=== PATIENT | female | born 1970 | race African-American/Black ===

== ENCOUNTER → 2017-03-24 | Outpatient (CLI) | payer OTHER ==
[~2017-03-24] MED LIST: BACL10TA PO; HYDR12.57 PO; OXYC-360 PO; TRIA1CAP6 PO
== END ==
LOC: CPRE 11:56
PROVIDERS: ATTEND Obstetrics & Gynecology Gynecologic Oncology
DX: Z01.812 Encounter for preprocedural laboratory examination (principal); N87.1 Moderate cervical dysplasia

== ENCOUNTER → 2017-04-05 | Day surgery (SDC) | payer OTHER ==
[~2017-04-05] VITALS: Ht 172.7 cm; Wt 123.5 kg
[~2017-04-05] MED LIST changes: +*morphine SULFATE 8 MG/ML PERIprocedure ONLY ONE; +ACETAMINOPHEN 1000 MG/100 ML VIAL IV ONE; +ACETIC ACID 0.25% SOLN 1000 ML IRR BTL ONE; +APREPITANT 40 MG CAP ONE; +CHLORHEXIDINE GLUCONATE 2 % 1 PACK (2 CLOTHS) TOPICAL PRN; +DO NOT ADM ANY ANTICOAGULANT DRUGS PRN; +FERRIC SUBSULFATE 8 ML TOP SOLN TOPICAL ONE; +INSULIN HUMAN REGULAR 1,000 UNITS/10 ML VIAL SQ PRN; +LACTATED RINGER'S 1000 ML IV PRN; +LIDOCAINE 1%/EPINEPHrine 1:100,000 SOLN 20 ML VIAL ONE; +METOPROLOL TARTRATE 25 MG TAB PO PRN; +MIDAZOLAM HCL 2 MG/2 ML VIAL ONE; +ONDANSETRON HCL 4 MG/2 ML VIAL IV PUSH ONE; +POVIDONE IODINE 5% (ANTISEPSIS KIT) 4 APPLICATIONS EACH NARE PRN; +PROPOFOL 200 MG/20 ML AMP IV ONE; +SILVER NITR/POTASSIUM NITRATE APPLICATORS ONE; +SODIUM CHLORID 0.9% 500 ML IV PRN; +oxyCODONE/ACETAMINOPHEN 5 MG/325 MG TAB PO PRN
[2017-04-05 11:37] VITALS: BP 145/83; PULSE 74; RESP 18; TEMP 98.3; O2SAT 99
[2017-04-05 14:58] VITALS: BP 150/97; PULSE 68; RESP 18; TEMP 98.9; O2SAT 97
--- NOTE | 2017-04-07 18:08 | MP ---
cc: CHAPITO GILBERT KELLY L. MD ESQUIVEL, PATRICIA C. MD DATE OF SURGERY 04/05/10 PREOPERATIVE DIAGNOSIS 1. High-grade cervical dysplasia. 2. Status post prior supracervical hysterectomy. POSTOPERATIVE DIAGNOSIS 1. High-grade cervical dysplasia. 2. Status post prior supracervical hysterectomy. PROCEDURE Examination under anesthesia, cold knife conization of the cervix, endocervical curettage. SURGEON Julia Granados MD CONTROL PANEL OPERATOR [place] human resources assistant ANESTHESIA Laryngeal mask anesthesia ESTIMATED BLOOD LOSS Less than 20 mL HISTORY A 46-year-old female who had undergone a prior supracervical hysterectomy for fibroids, bleeding, found on recent Pap smear to have abnormalities, led to colposcopy. Colposcopy and biopsy showed high-grade dysplasia. She was seen and counseled regarding recommendations for conization to clarify the presence or absence of an invasive cancer and to potentially treat the dysplasia. She is seen again in the preop holding area where these findings and recommendations are reviewed. Questions were answered. She expressed good understanding and agreed to proceed with surgery. FINDINGS On exam under anesthesia, there is no appreciably enlarged inguinal lymph nodes. External genitalia without mass or lesion. Vaginal mucosa appears normal. The cervix grossly appears normal. There is no obvious parametrial nodularity. There is some mobility to the cervix. Also on findings, the canal of the cervix sounds to approximately 2.5 cm and then reaches a close end. Consistent with her history, the uterus seems to be surgically absent. The adnexa cannot be palpated, although by history they are still left in situ. PROCEDURE IN DETAIL The patient was taken to the operating room, placed in dorsal lithotomy position. After laryngeal mask anesthesia was administered, time-out was undertaken. She was identified by sight recognition and hospital ID bracelet and the proposed procedure was reviewed and confirmed. Exam under anesthesia was performed. Dilute acetic acid was applied. Inspection showed some acetowhite epithelial changes near the transformation zone in the center of the cervix. There were no overt neoplastic changes or vascular changes around the ectocervix. After being prepped, draped sterile fashion, 0 Vicryl sutures were placed [id number] fashion in the lateral mason of the cervix at the 3 o'clock and 9 o'clock position for countertraction and hemostasis. Lidocaine epinephrine was injected circumferentially and a dilator was used to determine the depth of the cervical canal and the axis of the canal. Sharp dissection was then used circumferentially angling in toward the endocervical canal using a scalpel and then sharp dissection with scissor dissection removed the conization which was taken approximately 1.5 cm into the cervical canal. Endocervical curettings were performed, multiple passes circumferentially with a very small amount of tissue obtained combined as endocervical curetting. The peripheral edge of the cone bed was rendered hemostatic with cautery and then followed by Monsel's solution. The site was completely hemostatic. There were no remaining foreign objects in the vagina. Preliminary and final counts were correct. She was returned to dorsal supine position and was pending reversal of anesthesia when I left the operating room to precede her to the Post Anesthesia Care Unit and to speak to family member who was waiting. MD KI Pedraza/ /1:47 PM /5:50 PM
== END | disposition home or self-care (01) ==
LOC: HSDC 11:04
PROVIDERS: ATTEND Obstetrics & Gynecology Gynecologic Oncology
DX: D06.9 Carcinoma in situ of cervix, unspecified (principal)
CPT/HCPCS: 00940; 57520; 86850; 86900; 86901; 88305; 88307; J0131; J2250; J2270; J2405; J3010; J8501

== ENCOUNTER 2017-06-06 05:39 | Inpatient (IN) | payer OTHER ==
[~2017-06-06] VITALS: Ht 172.7 cm; Wt 120.7 kg
[~2017-06-06 05:39] MED LIST changes: -*morphine SULFATE 8 MG/ML PERIprocedure ONLY ONE; -ACETAMINOPHEN 1000 MG/100 ML VIAL IV ONE; -ACETIC ACID 0.25% SOLN 1000 ML IRR BTL ONE; -APREPITANT 40 MG CAP ONE; -BACL10TA PO; -CHLORHEXIDINE GLUCONATE 2 % 1 PACK (2 CLOTHS) TOPICAL PRN; -DO NOT ADM ANY ANTICOAGULANT DRUGS PRN; -FERRIC SUBSULFATE 8 ML TOP SOLN TOPICAL ONE; -INSULIN HUMAN REGULAR 1,000 UNITS/10 ML VIAL SQ PRN; -LACTATED RINGER'S 1000 ML IV PRN; -LIDOCAINE 1%/EPINEPHrine 1:100,000 SOLN 20 ML VIAL ONE; -METOPROLOL TARTRATE 25 MG TAB PO PRN; -MIDAZOLAM HCL 2 MG/2 ML VIAL ONE; -ONDANSETRON HCL 4 MG/2 ML VIAL IV PUSH ONE; -OXYC-360 PO; -POVIDONE IODINE 5% (ANTISEPSIS KIT) 4 APPLICATIONS EACH NARE PRN; -PROPOFOL 200 MG/20 ML AMP IV ONE; -SILVER NITR/POTASSIUM NITRATE APPLICATORS ONE; -SODIUM CHLORID 0.9% 500 ML IV PRN; -oxyCODONE/ACETAMINOPHEN 5 MG/325 MG TAB PO PRN
[2017-06-06] MEDS ORDERED: HEPARIN SODIUM - SQ 10,000 UNITS/ML VIAL SQ SCH (06:30)
[2017-06-06] MEDS ORDERED: metroNIDAZOLE 500 MG INJ 100 ML IV SCH (06:45)
[2017-06-06] MEDS ORDERED: LACTATED RINGER'S 1000 ML IV PRN (06:45)
[2017-06-06] MEDS ORDERED: METOPROLOL TARTRATE 25 MG TAB PO PRN (06:45)
[2017-06-06] MEDS ORDERED: CHLORHEXIDINE GLUCONATE 2 % 1 PACK (2 CLOTHS) TOPICAL PRN (06:45)
[2017-06-06] MEDS ORDERED: INSULIN HUMAN REGULAR 1,000 UNITS/10 ML VIAL SQ PRN (06:45)
[2017-06-06] MEDS ORDERED: LEVOFLOXACIN 500 MG PREMIX INJ 100 ML IV SCH (06:45)
[2017-06-06] MEDS ORDERED: POVIDONE IODINE 5% (ANTISEPSIS KIT) 4 APPLICATIONS EACH NARE PRN (06:45)
[2017-06-06] MEDS ORDERED: SODIUM CHLORID 0.9% 500 ML IV PRN (06:45)
[2017-06-06] MEDS ORDERED: LIDOCAINE 2%/EPINEPHrine PF 1:200,000 20ML SDV ONE (06:59)
[2017-06-06] MEDS ORDERED: ACETAMINOPHEN 1000 MG/100 ML 100 ML IV ONE (07:07)
[2017-06-06] MEDS ORDERED: SUGAMMADEX SODIUM 200 MG/2 ML VIAL IV PUSH ONE ×2 (07:08)
[2017-06-06] MEDS ORDERED: ARTIFICIAL TEARS OPTH OINT 3.5 APPLIC/3.5 GM TUBO ONE (07:08)
[2017-06-06] MEDS ORDERED: FAMOTIDINE 20 MG/2 ML VIAL ONE (07:08)
[2017-06-06] MEDS ORDERED: DO NOT ADM ANY ANTICOAGULANT DRUGS PRN (11:38)
[2017-06-06] MEDS ORDERED: SODIUM CHLORIDE 0.9% FLUSH 10 ML FLUSH IV FLUSH PRN (11:45)
[2017-06-06] MEDS ORDERED: LORazepam 0.5 MG TAB PO PRN (11:45)
[2017-06-06] MEDS ORDERED: diphenhydrAMINE HCL 25 MG CAP PO PRN (11:45)
[2017-06-06] MEDS ORDERED: ONDANSETRON HCL 4 MG/2 ML VIAL IVP PRN (11:45)
[2017-06-06] MEDS ORDERED: ONDANSETRON HCL 4 MG/2 ML VIAL IV PUSH ONE (12:00)
[2017-06-06] MEDS ORDERED: GLYCOPYRROLATE 1 MG/5 ML SYRINGE IV PUSH ONE (12:00)
[2017-06-06] MEDS ORDERED: ePHEDrine/NS 25 MG/5 ML SYR IV ONE (12:00)
[2017-06-06] MEDS ORDERED: LIDOCAINE HCL 1% PF 5 ML AMPULE OTHER ONE (12:00)
[2017-06-06] MEDS ORDERED: PROPOFOL 200 MG/20 ML AMP IV ONE (12:00)
[2017-06-06] MEDS ORDERED: LACTATED RINGER'S 1000 ML INJ 1,000 ML IV ONE (12:00)
[2017-06-06] MEDS ORDERED: DEXAMETHASONE SOD PHOS 4 MG/ML VIAL IV ONE (12:00)
[2017-06-06] MEDS ORDERED: MIDAZOLAM HCL 2 MG/2 ML VIAL IV ONE (12:00)
[2017-06-06] MEDS ORDERED: NORMOSOL R INJ 1,000 ML IV ONE (12:00)
[2017-06-06] MEDS ORDERED: NEOSTIGMINE 3 MG/3 ML SYR IV ONE (12:00)
[2017-06-06] MEDS ORDERED: ROCURONIUM INJ 50 MG/5 ML SYRINGE IV PUSH ONE (12:00)
[2017-06-06] MEDS ORDERED: VECURONIUM BROMIDE 20 MG VIAL IV ONE (12:00)
[2017-06-06] MEDS ORDERED: STERILE WATER FOR INJECTION 20 ML VIAL IV ONE (12:00)
[2017-06-06] MEDS ORDERED: *morphine SULFATE 8 MG/ML PERIprocedure ONLY ONE ×2 (12:08→12:44)
[2017-06-06] MEDS: D5-1/2 NS + KCL 20 MEQ INJ 1,000 ML IV SCH (12:15)
--- NOTE | 2017-06-06 13:47 | MP ---
cc: CHAPITO GILBERT KELLY L. MD ESQUIVEL, PATRICIA C. MD DATE OF SURGERY: 06/06/2017 PREOPERATIVE DIAGNOSIS 1. Cervical carcinoma in situ. 2. Status post prior supracervical hysterectomy. 3. Desires removal of tubes and ovaries. POSTOPERATIVE DIAGNOSIS 1. Cervical carcinoma in situ. 2. Status post prior supracervical hysterectomy. 3. Desires removal of tubes and ovaries. 4. Extensive intraperitoneal and pelvic adhesions. PROCEDURE Robotic-assisted laparoscopic trachelectomy (removal of the cervix), bilateral salpingo-oophorectomy, partial omentectomy, extensive lysis of adhesions. SURGEON Lillian Granados. CLAY HOISTER Esmeralda Coper Hand. ANESTHESIA General endotracheal anesthesia. ESTIMATED BLOOD LOSS 100 cc. IV FLUIDS 2000 cc. URINE OUTPUT 1250 cc. ESTIMATED BLOOD LOSS 100 cc. HISTORY A 46-year-old female with previous biopsy-proven carcinoma in situ of the cervix. She had undergone a previous supracervical hysterectomy and conization to evaluate the high-grade dysplasia, no evidence of invasive disease. She has been counseled regarding options. She is in favor of definitive removal of the cervix. She also has been counseled regarding the potential cancer-reducing steps of removing the fallopian tubes. We discussed the pros and cons of removing the ovaries versus keeping them in situ. She is seen again in the pre-op holding area. The issues are again discussed. She has given it thought and she is absolutely certain that she wants the tubes and ovaries removed. She understands the menopausal ramifications of this, states that she is already having hot flashes and is concerned about possible problems in the future, possible cancer, and wants the tubes and ovaries removed as well. FINDINGS The cervix is in situ. Grossly it appears normal. The residual cervix is estimated to be perhaps 3 cm in length. The tubes and ovaries grossly appear normal. There are no peritoneal implants. There are, however, dense adhesions. The omentum is adherent to the anterior abdominal wall. The distal omentum is overlying the vaginal cuff and adherent to the vaginal cuff, bladder and rectum and sidewalls as well as the right cul-de-sac of the pelvis. Despite the extensive adhesions the omentum grossly appears normal such that there is nothing that would suggest tumor; however, there is a nodule of what appears to be scar tissue distally fixed to the right pelvic sidewall. MODIFIERS/STATEMENT OF COMPLEXITY The complexly of this case was increased due to her prior surgeries with extensive adhesions. An estimated 45 minutes to one hour of additional time was spent lysing adhesions to gain safe access to the peritoneal cavity to establish normal anatomy and accomplish surgical objectives. Furthermore, increasing the complexly the case is body habitus of 124 kg. Modifier should be applied accordingly. DETAILS OF PROCEDURE She has taken to the operating room and placed in the dorsal lithotomy position. After general endotracheal anesthesia was administered a timeout was undertaken. She was identified by sight recognition and hospital ID branicole, and the proposed procedure was reviewed and confirmed. She was carefully positioned in padded Earl stirrups. Her arms were padded and secured to the sides. She was further secured to the table with eggcrate padding and tape in across chest over the shoulder fashion. All sites were noted to be properly aligned with no malalignments or pressure points. She was prepped in sterile fashion, draped below the waist, placed in high lithotomy position. The cervix was grasped. The cervix was dilated. The peritoneal depth was approximately 3 cm. A large VCare manipulator was inserted in the cervix. The balloon was expanded and a Collins catheter was placed in the bladder. She was returned to low lithotomy position. A change of sterile gloves was undertaken. We completed draping in anticipation of laparoscopy, confirmed that an orogastric tube was in the stomach on suction. With manual elevation of the abdominal wall and direct laparoscopic visualization, a 5 mm cannula was introduced into the left upper quadrant. An atraumatic entry was confirmed. Carbon dioxide gas was insufflated. A 12 mm cannula was placed in the midline above the umbilicus, an 8 mm cannula placed in the right upper quadrant and left lateral quadrant, and the original 5 mm cannula exchanged for an 8 mm cannula. Lysis of adhesions was carried down with sharp dissection to mobilize the omentum from the anterior abdominal wall toward the pelvis to initiate lysis of adhesions. She was placed in Trendelenburg position. Blunt graspers were used to mobilize the small bowel loops that were able to be folded back underneath the adherent omentum and three Ray-Rocio sponges were placed at the root of the small bowel mesentery. The robotic system was brought into the operative field and attached in the usual fashion. Monopolar scissors, fenestrated bipolar forceps and ProGrasp manipulators were placed in arms #1, 2 and 3 respectively and I took my place at the surgeon's console. Time was spent now lysing adhesions with sharp dissection, mobilizing the omentum, freeing adhesions in the pelvis. There was a section of omentum where there was nodularity thought to be scar tissue, somewhat hemorrhagic and friable, and this area was removed so that a portion of the distal omentum was isolated. The vascular parts were rendered hemostatic with bipolar cautery and then taken with sharp dissection in a stepwise fashion, removing the segment of omentum which was placed in the right pericolic gutter for later retrieval. Further lysis of adhesions was carried out to free the cul-de-sac adhesions to mobilize the omentum from its attachments to midline structures along the left pelvic sidewall. Additional adhesions were now taken down by retroperitoneal dissection on the left side. The residual round ligament remnant was isolated. Retroperitoneal dissection was carried out lateral and parallel to the gonadal vessels and the colon was mobilized medially as pericolonic adhesions were taken down. The right round ligament remnant was isolated. Retroperitoneal dissection was carried out. The ureter was identified on the medial leaf of the broad ligament. The infundibulopelvic ligament was isolated to the level of the pelvic brim. The intervening peritoneum was opened. The infundibulopelvic ligament was cauterized and transected. The additional adhesions to the adnexa were taken down with sharp dissection until the residual utero-ovarian ligament was isolated, cauterized and transected, and the right tube and ovary were placed in the right pericolic gutter for later retrieval. Similar steps were carried out on the left side. Left retroperitoneal dissection allowed identification of the ureter. The infundibulopelvic ligament was isolated. The intervening peritoneum was opened. The infundibulopelvic ligament was dissected to the level of the pelvic brim where it was cauterized and transected. Distal dissection was carried out, freeing adhesions from the adnexa until the left residual utero-ovarian ligament was isolated. It was cauterized and transected thereby removing the left tube and ovary which were placed in the right pericolic gutter for later retrieval. Attention was directed toward the cervix where there were fairly dense adhesions. The bladder was adherent anteriorly, some posterior peritoneal adhesions, and this peritoneum was dissected off the cervix. The bladder plane was a bit difficult to identify so the bladder was filled with saline dyed with methylene blue which helped isolate the bladder which helped identify the plane. The vesicouterine peritoneum was then dissected off the cervix and upper vagina. Similarly the posterior peritoneum and attachment adhesions were taken down posteriorly. The residual vasculature, cervical branches of the uterine vessels were isolated, cauterized and transected as were the residual cardinal paracervical and uterosacral ligaments isolated, cauterized and transected in a stepwise fashion. The bladder was inspected. There was good margin between the colpotomy site and the bladder edge, distended nicely under pressure with no defects in the bladder and now the bladder was drained. Colpotomy was performed following the inner diameter of the Airizuare manipulator the cervix from the upper vagina. The specimen was withdrawn transvaginally which included the cervix. A pneumo-occluder balloon was placed in the vagina to maintain pneumoperitoneum. A 12 cm EndoCatch bag was introduced transvaginally and the bilateral tubes and ovaries as well as the omental specimen were placed in the EndoCatch bag and withdrawn transvaginally. Instruments 1 and 3 were exchanged for needle drivers as 0 Vicryl suture was introduced. The vaginal cuff was closed starting at the left corner, full-thickness closure, including the posterior peritoneum, edge of the uterosacral ligament, tied via instrument tie. The closure was held on countertraction as a running full-thickness continuous closure was carried across the vaginal apex to the contralateral corner where it was similarly fixed, all layers and tied securely. The needle was cut and removed. The pelvis was thoroughly irrigated. Small bleeders rendered hemostatic with bipolar cautery. All sites were noted to be hemostatic with good peristalsis of ureters bilaterally. It was felt that all reasonable surgical objectives had been completed. Hemostatic Nelly powder was placed across the vaginal cuff and lateral vaginal sidewalls. The robotic instruments were removed. The robotic system was disengaged from the operative field and I reentered the bedside under sterile conditions. Each of the three Ray-Rocio sponges that had been placed in the peritoneal cavity were removed through the 12 mm cannula. They were removed individually and inspected and noted to be removed in their entirety. The 12 mm fascial defect was then closed with 0 Vicryl suture using a needle pass apparatus. They were tied securely which rendered the fascia completely airtight and hemostatic. The remaining cannulas were withdrawn. Carbon dioxide gas was removed from the peritoneal cavity. 3-0 Vicryl subcutaneous, 3-0 Vicryl subcuticular and Steri-Strips were used to close these incisions. She was returned to dorsal lithotomy position. Pelvic exam confirmed the vaginal cuff was well-supported and hemostatic. There were no vaginal lacerations. No remaining foreign objects in the vagina. Final counts were correct. She was returned to dorsal supine position and was pending reversal of anesthesia when I left the operating room to precede her to the post-anesthesia care unit and speak with her family members who were waiting in the family waiting area. MD KI Pedraza/JOSH /12:22 PM /1:07 PM
[2017-06-06] MEDS: traMADol HCL 50 MG TAB PO PRN ×2 (14:15→18:53)
[2017-06-06] MEDS: ACETAMINOPHEN 1000 MG/100 ML 100 ML IV SCH ×2 (14:15→18:54)
[2017-06-06 14:33] VITALS: BP 98/54; PULSE 81; RESP 18; TEMP 97.6; O2SAT 97
--- NOTE | 2017-06-06 15:24 | PD.ONC.PN ---
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: pt resting in bed with family at bedside states feels tired but otherwise OK denies any N/V feels "gassy" Objective Data Date Time Temp Pulse Resp B/P (MAP) Pulse Ox O2 Delivery O2 Flow Rate FiO2 06/06/17 14:33 97.6 81 18 98/54 (69) 97 06/06/17 12:45 97.6 69 15 101/53 (69) 95 Room Air 06/06/17 12:30 67 15 111/56 (74) 95 Room Air 06/06/17 12:15 60 15 106/52 (70) 95 Room Air 06/06/17 12:00 78 15 117/56 (76) 100 Room Air 06/06/17 11:45 96.9 82 15 128/64 (85) 100 Simple Mask 6 06/06/17 06:28 97.9 66 16 143/78 (99) 100 06/06/17 06/06/17 06/06/17 07:00 15:00 23:00 Intake Total 2100 ml Output Total 2250 ml Balance -150 ml Administered Medications Medications (Trade) Dose Ordered Sig/Jez Route PRN Reason Start Time Stop Time Status Last Admin Dose Admin Heparin Sodium (Porcine) (Heparin Inj) 5,000 units [facility] SQ 06/06/17 06:30 06/07/17 06:29 06/06/17 06:40 Metronidazole 100 ml @ 200 mls/hr [facility] IV 06/06/17 06:45 06/07/17 06:44 06/06/17 06:40 Levofloxacin/ Dextrose 100 ml @ 100 mls/hr [facility] IV 06/06/17 06:45 06/07/17 06:44 06/06/17 07:08 Lactated Ringer's 1,000 ml @ 30 mls/hr Q24H PRN IV SEE LABEL COMMENTS 06/06/17 06:45 06/09/17 06:44 06/06/17 06:20 Povidone Iodine (Betadine 5% Antisepsis Kit) 1 applic [facility] PRN EACH NARE SEE LABEL COMMENTS 06/06/17 06:45 06/09/17 06:44 06/06/17 06:30 Chlorhexidine Gluconate (Chlorhexidine 2% Cloth) 3 pack [facility] PRN TOPICAL SEE LABEL COMMENTS 06/06/17 06:45 06/09/17 06:44 06/06/17 06:00 Potassium Chloride/Dextrose/ Sod Cl 1,000 ml @ 75 mls/hr [id number] IV 06/06/17 12:00 06/06/17 12:15 Acetaminophen 100 ml @ 400 mls/hr Q6H IV 06/06/17 13:00 06/07/17 12:59 06/06/17 14:15 Tramadol HCl (Ultram) 50 mg Q4H PRN PO PAIN 1-10 06/06/17 11:45 06/06/17 14:15 Objective Remarks GENERAL: Well-nourished, well-developed patient. SKIN: Warm and dry. HEAD: Normocephalic. EYES: No scleral icterus. No injection or drainage. CARDIOVASCULAR: Regular rate and rhythm without murmurs. RESPIRATORY: Breath sounds equal bilaterally. No accessory muscle use. GASTROINTESTINAL: Abdomen soft, non-tender, nondistended. SS are c/d/i EXTREMITIES: teds and scds MUSCULOSKELETAL: Adequate muscle tone. NEUROLOGICAL: No obvious focal deficit. Awake, alert, and oriented x3. PSYCHIATRIC: Appropriate mood and affect; insight and judgment normal. Assessment/Plan Problem List: (1) Post-operative state ICD Codes: Z98.890 - Other specified postprocedural states Plan: s/p RA lap trachelectomy and lysis of adhesions post op orders in chart ADAT Tramadol for pain OOB to chair anticipate discharge in the next 24 hours Raphael Kessler Jun 06, 2017 15:24
[2017-06-06 16:00] VITALS: BP 117/83; PULSE 88; RESP 19; TEMP 98; O2SAT 100
[2017-06-06 20:00] VITALS: BP 145/75; PULSE 82; RESP 16; TEMP 98.5; O2SAT 99
[2017-06-06] MEDS: SODIUM CHLORIDE 0.9% FLUSH 10 ML FLUSH IV FLUSH SCH (21:00)
[2017-06-07] VITALS: BP 135/79; PULSE 68; RESP 17; TEMP 97.4; O2SAT 100
[2017-06-07] MEDS: traMADol HCL 50 MG TAB PO PRN ×3 (00:13→10:55)
[2017-06-07] MEDS: ACETAMINOPHEN 1000 MG/100 ML 100 ML IV SCH ×2 (00:14→06:31)
[2017-06-07] MEDS: D5-1/2 NS + KCL 20 MEQ INJ 1,000 ML IV SCH ×2 (01:15→14:40)
[2017-06-07 04:00] VITALS: BP 142/82; PULSE 76; RESP 17; TEMP 97.1; O2SAT 99
[2017-06-07 06:42] LABS: AUTOMATED NEUTROPHIL # 4.3 TH/MM3 (1.8-7.7); BASOPHIL % 0.3 % (0.0-2.0); EOSINOPHIL % 0.5 % (0.0-4.0); HEMATOCRIT 39.4 % (35.0-46.0); HEMO FLAGS DIFF FINAL; LYMPH % 21.4 % (9.0-44.0); LYMPHOCYTE # 1.3 TH/MM3 (1.0-4.8); MEAN CELL VOLUME 84.9 FL (80.0-100.0); MEAN CORPUSCULAR HEMOGLOBIN 27.9 PG (27.0-34.0); MEAN CORPUSCULAR HGB CONC 32.8 % (32.0-36.0); MONO % 7.8 % (0.0-8.0); PLATELET COUNT 270 TH/MM3 (150-450); RED BLOOD COUNT 4.64 MIL/MM3 (4.00-5.30); RED CELL DISTRIBUTION WIDTH 14.5 % (11.6-17.2); WHITE BLOOD COUNT 6.2 TH/MM3 (4.0-11.0)
[2017-06-07 07:13] LABS: BICARBONATE 27.1 MEQ/L (21.0-32.0); POTASSIUM 3.6 MEQ/L (3.5-5.1)
[2017-06-07] MEDS ORDERED: ULTR50TA5 PO (07:17)
[2017-06-07 08:03] VITALS: BP 148/88; PULSE 88; RESP 18; TEMP 97.3; O2SAT 99
[2017-06-07] MEDS ORDERED: HYDROCHLOROTHIAZIDE 12.5 MG CAP PO SCH (09:00)
[2017-06-07] MEDS ORDERED: TRIAMTERENE 50 MG PO SCH (09:00)
[2017-06-07] MEDS: SODIUM CHLORIDE 0.9% FLUSH 10 ML FLUSH IV FLUSH SCH (10:49)
[2017-06-07 12:00] VITALS: BP 139/85; PULSE 62; RESP 16; TEMP 97.3; O2SAT 99
--- NOTE | 2017-06-08 08:45 | MD ---
cc: ARIEL WHEELER MD,SOM RIOS, MARIA L,CH[place]O ADMISSION DATE: 06/06/2017 DISCHARGE DATE: 06/07/2017 PROCEDURE 06/06/2017 robotic-assisted laparoscopic trachelectomy, bilateral salpingo-oophorectomy, partial omentectomy, extensive lysis of adhesions. HOSPITAL COURSE She has done well in early postoperative period. Hemodynamically stable. In's and out's 2900/3300. Labs this morning H&H 12.9 and 39.4. Electrolytes essentially within normal limits. PHYSICAL EXAMINATION VITAL SIGNS: Afebrile, pulse 68-88, respirations 16-19, blood pressure and 98-145 over 54 to 83, O2 saturations greater than equal to 99% of oriented x3. LUNGS: Lungs are clear mild basilar rales. CARDIOVASCULAR SYSTEM: Regular rate. ABDOMEN: The incisions are clean and dry. Mild ecchymosis in the midline incision, nontender. GYNECOLOGY: No bleeding. EXTREMITIES: Nontender SCDs in place. ASSESSMENT Postop day #1 FINDINGS AT SURGERY Steps taken, were reviewed activities restrictions discussed. Questions were answered, she expressed good understanding. PLAN 1. Anticipation of the ready for discharge to home. She is to contact our office to schedule follow up in 2 weeks. 2. She is to resume prior medication but prior medications prescription for tramadol for pain that she states no known intolerance of this medicine. 3. She is to call our office should she have any questions or problems between now the time of scheduled followup. MD KI Pedraza/ramona /7:19 AM /8:38 AM
== END 2017-06-07 16:25 | disposition home or self-care (01) | DRG 741 ==
LOC: HSDC 05:39 → HSDI 11:40 → HOCB 13:33
PROVIDERS: ADMIT Obstetrics & Gynecology Gynecologic Oncology; ATTEND Obstetrics & Gynecology Gynecologic Oncology
PROC: 0UT74ZZ Resection of Bilateral Fallopian Tubes, Percutaneous Endoscopic Approach (ICD-10-PCS; 2017-06-06)
PROC: 0UT24ZZ Resection of Bilateral Ovaries, Percutaneous Endoscopic Approach (ICD-10-PCS; 2017-06-06)
PROC: 0DBU4ZZ Excision of Omentum, Percutaneous Endoscopic Approach (ICD-10-PCS; 2017-06-06)
PROC: 8E0W4CZ Robotic Assisted Procedure of Trunk Region, Percutaneous Endoscopic Approach (ICD-10-PCS; 2017-06-06)
PROC: 0U7C7ZZ Dilation of Cervix, Via Natural or Artificial Opening (ICD-10-PCS; 2017-06-06)
PROC: 0UTC4ZZ Resection of Cervix, Percutaneous Endoscopic Approach (ICD-10-PCS; principal; 2017-06-06 07:11)
DX: D06.9 Carcinoma in situ of cervix, unspecified (principal); N73.6 Female pelvic peritoneal adhesions (postinfective)
CPT/HCPCS: 80048; 85025; 86850; 86900; 86901; 88305; 88307; 94150; J0131; J1100; J1644; J1956; J2250; J2270; J2405; J2710; J3010; J3480; J7120